=== PATIENT | female | born 1965 | race American Indian/Alaskan Native ===

== ENCOUNTER 2023-06-30 18:38 | Emergency (ER) | payer OTHER, SELFPAY ==
[2023-06-30 18:40] VITALS: BP 147/94
[2023-06-30 18:43] VITALS: BMI 34.9
--- NOTE | 2023-06-30 19:25 | ED.GENMED ---
History of Present Illness
General
Chief Complaint: Chest Pain
Source: patient
Exam Limitations: none
Time Seen by Provider: 06/30/23 19:04
Travel History
Have you had any contact with someone who has COVID-19?: No
Do you have any symptoms of coronavirus? Fever > 100 degrees, chills, cough, shortness of breath, sore throat, loss of taste or smell, muscle aches, or headache?: No
History of Present Illness
History of Present Illness:
This is a 57 year old female that comes in with c/o chest tightness. State that this started a couple of months ago. States that she started to take notice when she was in bed and she had discomfort. States that a couple Sundays ago she was to run a
10 K with her sisters. State that before this started she had some chest discomfort and difficulty breathing. States that she only ran 5K. States that her sister took her pulse and felt it was skipping a beat. States that she also had pain behind
her eye and her ear. Since then she has had more episodes and it seems more consistent. States that Saturday, Saturday and today it is more frequent. Today when she was driving into work she started with chest tightness. States that it hasn't stopped
since it started. States that occasionally she has a cough. State that she feels SOB with the chest pain. States that she has a slight headache behind the right eye. Denies any fever, chills, abd pain, nausea, vomiting, diarrhea, dizziness, urinary
burning
Past History
Past History
ED Past Medical History: None; Negative Asthma, HTN, Hypercholesterolemia or NIDDM
ED Past Surgical History: Cholecystectomy
Social History
Tobacco: Non-smoker
Alcohol: None
Drug: None
Personal:
Living: with family
Employment: Employed
Review of Systems
Review of Systems
All Other Systems: ROS reviewed and negative except as documented in HPI and ROS
Constitutional: Reports no symptoms; Denies fever or chills
EENT: Reports no symptoms
Respiratory: Reports cough and trouble breathing
Cardiac: Reports chest pain
ABD/GI: Reports no symptoms; Denies abdominal pain, nausea, vomiting or diarrhea
: Reports no symptoms; Denies dysuria, frequency or urgency
Musculoskeletal: Reports no symptoms
Skin: Reports no symptoms
Neurological: Reports headache; Denies dizzy
Psychiatric: Reports no symptoms
Phy Exam
General Physical Exam
General Presentation: well appearing and no apparent distress
General age: appears stated age
General Skin: warm and dry
General Habitus: normal
General Mental: alert
ENT Exam
ENT Exam: TM's normal, pharynx normal and neck supple
Eye Exam
Eye Exam: EOMI
Cardiovascular Exam
Cardiovascular Exam: regular rate/rhythm, no edema, no murmur, normal peripheral pulses and other (Occasional PVC's)
Pulmonary Exam
Pulmonary Exam: lungs clear, no respiratory distress, no rales, chest non tender, no crackles, no rhonchi, no wheezing and other (Occasional dry cough noted)
Gastrointestinal Exam
Gastrointestinal Exam: normal bowel sounds, non tender, soft, no organomegaly, no pulsatile mass and non distended
Musculoskeletal Exam
Musculoskeletal Exam: full ROM and no edema
Skin Exam
Skin Exam: normal color, warm/dry, no rash and no petechia
Psychiatric Exam
Psychiatric Exam: normal mood/affect
Scores
Heart Score for Chest Pain Patients
STEMI patient?: No
History: Slightly or Non-Suspicious
ECG: Normal
Age: >45 - <65 years
Risk Factors: No Risk Factors
Troponin: </= Normal Limit
Heart Score for Chest Pain Patients: 1
Heart Score Risk: 2.5% MACE over next 6 weeks
Course
Orders/Labs/Results
Orders:
Orders
06/30/23 18:39
EKG [Electrocardiogram (*1)] Urgent
Reason for Study: Chest Pain
06/30/23 18:40
EKG- Treatment ONCE
06/30/23 19:16
EKG- Treatment ONCE
06/30/23 19:26
Aspirin 325 mg PO NOW STA
06/30/23 19:30
Electrocardiogram (*1) Q3H
Reason for Study: Chest Pain
06/30/23 19:33
Ipratropium/Albuterol Sulfate [Duoneb] 3 ml INH R NOW ONE
06/30/23 19:37
Complete Blood Count/With Diff Urgent
Comprehensive Metabolic Panel Urgent
D-Dimer Urgent
Troponin I Q3H
06/30/23 21:16
CR Chest - 2 Views Urgent
Comment:
Reason For Exam: chest pain
06/30/23 22:29
Troponin I Q3H
06/30/23 22:30
Electrocardiogram (*1) Q3H
Reason for Study: Chest Pain
06/30/23 22:37
EKG [Electrocardiogram (*1)] Urgent
Reason for Study: Chest Pain
Abnormal Lab Results
06/30/23
19:37
WBC 11.3 H 10^3/uL
(4.8-10.8)
Absolute Neuts (auto) 7.4 H 10^3/uL
(1.4-6.5)
Absolute Monos (auto) 0.9 H 10^3/uL
(0.1-0.6)
Glucose 101 H mg/dl
(70-99)
06/30/23 19:37
06/30/23 19:37
WBC very slightly elevated. Glucose nonfasting. Both Troponin<0.012, D-dimer 0.35
Vital Signs
Initial and Last Documented VS:
Initial Vital Signs
Temp Pulse Resp BP Pulse Ox
98.2 F 91 16 147/94 98
06/30/23 18:40 06/30/23 18:40 06/30/23 18:40 06/30/23 18:40 06/30/23 18:40
Last Documented Vital Signs
Temp Pulse Resp BP Pulse Ox
98.2 F 77 18 102/57 94
06/30/23 18:40 06/30/23 22:45 06/30/23 22:45 06/30/23 22:26 06/30/23 22:45
MDM/Problems Addressed
Differential Diagnosis Includes:
PE, ID, Coronary syndrome
MDM/Problems Addressed:
This is a 57 year old female that comes in with c/o chest tightness. States that this started a couple months ago but has continued to get worse. States that today she started with chest tightness on her way into work and it is still there.
Will check labs, D-dimer and given Duo neb. Will get Chest x-ray or CT chest depending on D-dimer
Repeat ECG: NSR, Rate 79, Normal axis, Normal QRS, Negative for ischemia. Checked by Dr. Ronquillo.
Back into see patient. Explained that both Troponin are normal along with the D-dimer. Chest x-ray is also normal. However, will place patient on the Cardiology hot line for further evaluation. Patient to take Aspirin 325 daily. Patient to return
with increased or changing pain or pain that last any length of time.
Chronic conditions affecting care:
NA
Acute Exacerbation and/or Progression of Chronic Illness:
NA
*Pulse Oximetry
Patient hypoxic: no
*EKG
Interpreted by ED Provider?: Yes
Heart Rate: 78
Rate: normal
Rhythm: sinus
[place]: normal axis
Interval: normal interval
QRS Pattern: other (Incomplete RBBB)
Ischemia: no ischemia
*[employer] Manager Interpretation
Rate: normal
Heart Rate: 75
Rhythm: sinus and PVC's
*Critical Care Note
Total Time (30-74mins, 75-104mins- exclusive of procedures): Not Applicable
ED Attending Note
-
Portions of this chart may have been created with voice recognition software.� Occasional wrong word or��sound alike� substitutions may have occurred due to the inherent limitations of voice recognition software.
Discharge Plan
Departure
Patient Disposition: Home (Routine Discharge)
Date of Disposition: 06/30/23
Time of Disposition: 23:11
Patient with high blood pressure during this ER visit?: No
Condition: Good
Covid-19: Not Applicable
Discharge Problem:
Chest pain
Instructions: Chest Pain (DC), Chest Pain CBC Follow Up
Prescriptions:
No Action
ondansetron 4 MG tablet,disintegrating
4 mg PO TIDPRN PRN (Reason: nausea) Qty: 6 0RF
Referrals:
David Denny MD [Active] - Follow up in 2-3 days
Bonita Young PA [Family Provider] -
Activity Restrictions/Additional Instructions:
As discussed, your blood work shows that both Troponin are normal and your D-dimer is negative. Your chest x-ray is normal. You have been place on the Cardiology hot line. This means that the [facility] office will call you the next Business day
for further evaluation. Please take an Aspirin 325 daily. IF YOU HAVE INCREASED OR CHANIGNG PAIN, OR YOU HAVE ANY OTHER CONCERNS PLEASE RETURN TO THE EMERGENCY ROOM.
Interventions
Interventions:
*Risk Screen - Suicide Last Done: 06/30/23 18:40
*Neglect/Abuse Screening Last Done: 06/30/23 18:40
*ED COVID-19 Vaccine History Last Done: 06/30/23 18:43
ED- Cardiac Assessment Last Done: 06/30/23 19:35
[2023-06-30] MEDS: ASPIRIN 325 MG PO (19:41)
[2023-06-30] MEDS: DUONEB 3 ML INH (19:41)
[2023-06-30 19:50] LABS: % Basophils 0.4 % (0-2); % Eosinophils 0.9 % (0-6); % Immature Granulocytes 0.3 % (0-0.5); % Lymphocytes 25.2 % (20.5-51.1); % Monocytes 7.8 % (1.7-9.3); % Neutrophils 65.4 % (42.2-75.2); Absolute Basophils 0.1 10^3/uL (0-0.2); Absolute Eosinophils 0.1 10^3/uL (0-0.7); Absolute Lymphocytes 2.8 10^3/uL (1.2-3.4); Absolute Monocytes 0.9 10^3/uL (0.1-0.6); Absolute Neutrophils 7.4 10^3/uL (1.4-6.5); Mean Corp Hgb Conc. 35.9 g/dL (33.0-37.0); Mean Corpuscular Volume 86.5 fL (81.0-99.0); Nucleated Red Blood Cells % 0 %; Platelet Count 290 10^3/uL (130-400); Red Blood Cell Count 4.51 10^6/uL (4.20-5.40); White Blood Cell Count 11.3 10^3/uL (4.8-10.8)
[2023-06-30 19:56] LABS: ALT (SGPT) 25 U/L (0-35); AST (SGOT) 30 U/L (14-36); Albumin 4.4 g/dl (3.5-5.0); Alkaline Phosphatase 101 U/L (38-126); Blood Urea Nitrogen 11 mg/dl (7-17); Calcium 9.4 mg/dl (8.4-10.2); Carbon Dioxide 24 mmol/L (22-30); Chloride 104 mmol/L (98-107); Estimated Creatinine Clearance 90 ml/min; Glucose 101 mg/dl (70-99); Potassium 3.7 mmol/L (3.5-5.1); Sodium 137 mmol/L (135-145); Total Bilirubin 0.6 mg/dl (0.2-1.3); Total Protein 7.3 g/dl (6.3-8.2); eGFR > 60.00
[2023-06-30 20:07] LABS: Troponin I < 0.012 ng/ml
[2023-06-30 20:14] VITALS: BP 109/71
[2023-06-30 20:49] LABS: D-Dimer 0.35 ug/mlFEU (0.00-0.50)
[2023-06-30 21:00] VITALS: BP 100/55
[2023-06-30 22:26] VITALS: BP 102/57
[2023-06-30 23:00] VITALS: BP 101/54
[2023-06-30 23:03] LABS: Troponin I < 0.012 ng/ml
== END 2023-06-30 23:38 | disposition home or self-care (01) ==
LOC: EMR 18:38
PROVIDERS: Clinical Nurse Specialist Family Health; EMERGENCY PHYSICIAN Emergency Medicine; FAMILY PHYSICIAN Physician Assistant
DX: R07.89 Other chest pain (principal); R06.02 Shortness of breath; R05.9 Cough, unspecified; R51.9 Headache, unspecified; Z79.82 Long term (current) use of aspirin
CPT/HCPCS: 99285; 94640; 71046; 80053; 84484; 85025; 85379; 93005

== ENCOUNTER → 2023-07-17 11:38 | Outpatient (REF) | payer OTHER, SELFPAY | LOC: DHCBC/DCA 11:38 | PROVIDERS: ATTENDING PHYSICIAN Internal Medicine Cardiovascular Disease; FAMILY PHYSICIAN Physician Assistant | DX: R07.2 Precordial pain (principal) | CPT/HCPCS: 78452; 93017; A9500 ==

== ENCOUNTER → 2023-08-01 12:47 | Outpatient (REF) | payer OTHER, SELFPAY | LOC: RCS 12:47 | PROVIDERS: ATTENDING PHYSICIAN Internal Medicine Cardiovascular Disease; FAMILY PHYSICIAN Physician Assistant | DX: R07.2 Precordial pain (principal); R06.09 Other forms of dyspnea | CPT/HCPCS: 93306 ==

== ENCOUNTER → 2024-09-22 16:19 | Outpatient (REF) | payer OTHER, SELFPAY | LOC: RAD 16:19 | PROVIDERS: ATTENDING PHYSICIAN Physician Assistant | DX: M79.672 Pain in left foot (principal) | CPT/HCPCS: 73630 ==

== ENCOUNTER → 2024-11-02 08:16 | Outpatient (REF) | payer OTHER, SELFPAY | LOC: WDC 08:16 | PROVIDERS: ATTENDING PHYSICIAN Physician Assistant | DX: Z12.31 Encounter for screening mammogram for malignant neoplasm of breast (principal) | CPT/HCPCS: 77063; 77067 ==